=== PATIENT | female | born 2000 | race African-American/Black ===

== ENCOUNTER 2019-03-02 08:07 | Emergency (ER) | payer OTHER ==
[2019-03-02] MEDS ORDERED: NA CHLORIDE 0.9% 1,000 ML ONE (09:28)
[2019-03-02] MEDS ORDERED: ONDANSETRON 4 MG/2 ML VIAL ONE (09:29)
[2019-03-02] MEDS ORDERED: FAMOTIDINE 20 MG/2 ML VIAL IV ONE (09:29)
[2019-03-02 09:59] LABS: ALT/SGPT 18 U/L (12-78); AST/SGOT 18 U/L (15-37); Albumin 4.2 g/dL (3.4-5.0); Alkaline Phosphatase 54 U/L (45-117); BUN Blood Urea Nitrogen 11 mg/dL (7-18); Bicarbonate 25 mmol/L (21-32); Bilirubin Direct 0.2 mg/dL (0-0.2); Bilirubin Total 0.6 mg/dL (0.2-1.0); Glucose Level 88 mg/dL (74-106); Lipase 92 U/L (73-393); Potassium 4.2 mmol/L (3.5-5.1); Protein, Total 7.5 g/dL (6.4-8.2); Sodium Level 140 mmol/L (136-145)
[2019-03-02 10:17] LABS: Absolute Lymphocytes (CBC) 0.2 K/uL (0.7-4.9); Basophils % 0.2 % (0-1.3); Lymphocytes % 2.8 % (15.3-44.8); MPV 9.2 fL (7.6-11.3); RBC Red Blood Cell Count 4.71 M/uL (3.86-4.86)
--- NOTE | 2019-03-02 10:20 | RAD REPORT ---
EXAM DESCRIPTION: US - Abdomen Exam Limited - 03/02/2019 10:09 am CLINICAL HISTORY: Abd pain;Nausea / vomiting COMPARISON: No comparisons FINDINGS: The gallbladder demonstrates no gallstones. No pericholecystic fluid or gallbladder wall t hickening. The common bile duct is normal measuring 2 mm. The liver demonstrates no findings of intrahepatic biliary dilatation. IMPRESSION: Unremarkable examination.
[2019-03-02 11:03] LABS: Blood Morphology Comment NOT SEEN (NOT SEEN); Platelet Estimate ADEQ
[2019-03-02 11:19] LABS: Urine Blood NEGATIVE (NEG); Urine Glucose NEGATIVE (NEG); Urine Protein NEGATIVE (NEG); Urine pH 7.5 (5.0-7.0)
--- NOTE | 2019-03-02 11:32 | RAD REPORT ---
EXAM DESCRIPTION: CT - Abdomen Pelvis W Contrast - 03/02/2019 10:45 am CLINICAL HISTORY: Abdominal pain with vomiting and diarrhea COMPARISON: none. TECHNIQUE: Computed axial tomography of the abdomen pelvis was obtained. 100 cc Isovue-300 was admin istered intravenously. Oral contrast was not requested which limits evaluation of bowel. All CT scans are performed using dose optimization technique as appropriate and may include automated exposure control or mA/KV adjustment according to patient size. FINDINGS: The liver, spleen, pancreas, adrenal and kidneys appear unremarkable. There is no evidence of diverticulitis. 4.5 centimeter fluid collection is present within the posterior right pelvis. Small amount of free fl uid is present. A 2 centimeter regularly shaped fluid filled structure right adnexal Fluid is present within nondilated bowel. Scoliosis is present IMPRESSION: 2 centimeter irregularly-shaped fluid filled structure right adnexa may represent a rece ntly ruptured ovarian cyst A 4.5 centimeter fluid collection within the posterior right pelvis may r epresent an additional cyst or fluid within small bowel. . Pelvic ultrasound recommended Fluid within nondilated small bowel may indicate an enteritis. The appendix is not clearly seen. If the patient has clinical symptoms to suggest appendicitis then a CT scan with oral contrast and opacification of the terminal ileum/cecum would be recommended
--- NOTE | 2019-03-02 12:24 | ER ---
Nurse's Notes [facility] Name: Judy Hammond Age: 18 yrs Sex: Female : 2000 Arrival Date: 03/02/2019 Time: 08:09 Bed 14 Private MD: Diagnosis: Nausea and vomiting Presentation: 03/02 08:29 Presenting complaint: N/V/D, upper abdominal pain, and body aches since 0100 today. Not hb tolerating fluids. Mother reports frequent N/V x 2 months. Transition of care: patient was not received from another setting of care. Onset of symptoms was March 02, 2019. Risk Assessment: Do you want to hurt yourself or someone else? Patient reports no desire to harm self or others. Initial Sepsis Screen: Does the patient meet any 2 criteria? No. Patient's initial sepsis screen is negative. Does the patient have a suspected source of infection? No. Patient's initial sepsis screen is negative. Care prior to arrival: None. 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 - Social history:: Smoking status: Patient/guardian denies using tobacco. - Ebola Screening: : No symptoms or risks identified at this time. Screenin:25 Abuse screen: Denies threats or abuse. Nutritional screening: No deficits noted. aa5 Tuberculosis screening: No symptoms or risk factors identified. Fall Risk None identified. Assessment: 09:20 General: Appears uncomfortable, Behavior is calm, cooperative. Pain: Complains of pain aa5 in abdomen diffusely, legs, and salima hips Pain does not radiate. Pain currently is 7 out of 10 on a pain scale. Quality of pain is described as aching, Is intermittent. Neuro: Level of Consciousness is awake, alert, obeys commands, Oriented to person, place, time, situation. Cardiovascular: Heart tones S1 S2 present Rhythm is regular. Respiratory: Airway is patent Respiratory effort is even, unlabored, Respiratory pattern is regular, symmetrical, Breath sounds are clear bilaterally. GI: Abdomen is flat, non-distended, Bowel sounds present X 4 quads. Abd is soft and non tender X 4 quads. Reports diarrhea, nausea, vomiting, decreased appetite. : No signs and/or symptoms were reported regarding the genitourinary system. EENT: No signs and/or symptoms were reported regarding the EENT system. Derm: Skin is dry, Skin is normal, Skin temperature is warm. Musculoskeletal: Range of motion: intact in all extremities. 09:20 Reassessment: Pt's mother states "she's been having trouble keeping weight on and she aa5 has an appointment for a gallbladder ultrasound but not until March 22 because she's been having nausea and vomiting for a few months now and we are trying to find out if it's her gallbladder or maybe she is lactose intolerant" . 10:06 Reassessment: Pt back from US, pt ambulatory to restroom at this time, reports nausea aa5 has improved. . 10:23 Reassessment: Urine collected, pt back in bed. Pt states "I feel way better and I am aa5 even hungry now" . 10:23 Neuro: Level of Consciousness is awake, alert, obeys commands, Oriented to person, aa5 place, time, situation. Respiratory: Airway is patent Respiratory effort is even, unlabored, Respiratory pattern is regular, symmetrical. Derm: Skin is dry, Skin is normal, Skin temperature is warm. 10:23 General: Appears comfortable. aa5 10:34 Reassessment: Pt taken to CT via wheelchair . aa5 11:20 Reassessment: Pt sitting up in bed. Pt states feeling better, denies pain. Equal aa5 unlabored, respirations. Skin is normal/warm/dry, A\\T\\O x 4. . Vital Signs: 08:31 BP 112 / 73; Pulse 89; Resp 16; Temp 99(TE); Pulse Ox 100% on R/A; Weight 44.91 kg; hb Height 5 ft. 2 in. (157.48 cm); Pain 7/10; 09:38 BP 100 / 66; Pulse 91; Resp 16 S; Pulse Ox 100% on R/A; Pain 7/10; aa5 11:20 BP 115 / 74; Pulse 93; Resp 16 S; Pulse Ox 100% on R/A; Pain 0/10; aa5 12:00 BP 115 / 73; Pulse 103; Resp 18 S; Pulse Ox 99% on R/A; aa5 12:29 Weight 42.37 kg; mg2 13:11 BP 113 / 63; Pulse 98; Resp 17; Temp 98; Pulse Ox 100% on R/A; Pain 0/10; mg2 12:29 Body Mass Index 17.08 (42.37 kg, 157.48 cm) mg2 ED Course: 08:09 Patient arrived in ED. as 08:16 Mickey Fuentes MD is Attending Physician. kdr 08:30 Triage completed. hb 08:31 Arm band placed on right wrist. hb 09:03 Hai Sainz, MARIA GUADALUPE is Primary Nurse. bp 09:20 Patient has correct armband on for positive identification. Bed in low position. Call aa5 light in reach. Side rails up X2. Adult w/ patient. 09:25 Initial lab(s) drawn, by me, sent to lab. Inserted saline lock: 20 gauge in right aa5 antecubital area, using aseptic technique. Blood collected. 09:36 Radiology exam delayed due to lab results not completed at this time. (BUN/Creatinine) jg6 test not completed at this time. 10:09 US Abdomen Limited In Process Unspecified. EDMS 10:48 CT Abd/Pelvis - IV Contrast Only In Process Unspecified. EDMS 12:00 Report given to MARIA GUADALUPE Cruz. aa5 13:12 No provider procedures requiring assistance completed. IV discontinued, intact, mg2 bleeding controlled, No redness/swelling at site. Pressure dressing applied. Administered Medications: 09:32 Drug: Zofran 4 mg Route: IVP; Site: right antecubital; aa5 13:11 Follow up: Response: No adverse reaction; Marked relief of symptoms mg2 09:32 Drug: NS 0.9% 1000 ml Route: IV; Rate: 1 bolus; Site: right antecubital; aa5 13:10 Follow up: Response: No adverse reaction; IV Status: Completed infusion; IV Intake: mg2 1000ml 09:34 Drug: Pepcid 20 mg Route: IVP; Site: right antecubital; aa5 13:11 Follow up: Response: No adverse reaction; Marked relief of symptoms mg2 Intake: 13:10 IV: 1000ml; Total: 1000ml. mg2 Outcome: 12:23 Discharge ordered by . kdr 13:12 Discharged to home ambulatory, with family. mg2 13:12 Condition: stable 13:12 Discharge instructions given to patient, family, Instructed on discharge instructions, follow up and referral plans. medication usage, Demonstrated understanding of instructions, follow-up care, medications, Prescriptions given X 2. 13:12 Patient left the ED. mg2 Signatures: Dispatcher [employer] EDMS Mickey Fuentes MD MD [facility] Betsy Wall Audri, RN RN aa5 Melanie Sánchez RN RN Hai Sainz RN RN bp Gardose, Michele, RN RN mg2 Isabelle Lei6 Corrections: (The following items were deleted from the chart) 11:09 09:20 GI: Abdomen is flat, non-distended, Bowel sounds present X 4 quads. Abd is soft aa5 and non tender X 4 quads. Reports diarrhea, nausea, vomiting, aa5
--- NOTE | 2019-03-02 12:25 | EDPHYS ---
Physician Documentation [facility] Name: Judy Hammond Age: 18 yrs Sex: Female : 2000 Arrival Date: 03/02/2019 Time: 08:09 Bed 14 Private MD: ED Physician Mickey Fuentes HPI: 03/02 10:05 This 18 yrs old Black Female presents to ER via Ambulatory with complaints of Abdominal kdr Pain. 10:05 The patient presents with abdominal pain in the upper abdomen. Onset: The kdr symptoms/episode began/occurred last night, That patient has been having intermittent n/v for two months and has not been evaluated. She is normally petite for her age and since last night has been n/v and unable to keep anything down. She c/o pain to her upper abdomen and generalized aches and pains.. The symptoms do not radiate. Associated signs and symptoms: Pertinent positives: nausea and vomiting, Pertinent negatives: chest pain, constipation, diarrhea, headache, hematuria, palpitations, shortness of breath, vaginal discharge, vomiting, vomiting blood. The symptoms are described as achy, crampy, intermittent, vague, waxing/waning. Modifying factors: The symptoms are alleviated by nothing, the symptoms are aggravated by food, vomiting. Severity of pain: At its worst the pain was moderate in the emergency department the pain is unchanged. The patient has experienced similar episodes in the past, a few times. The patient has not recently seen a physician. 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 - Social history:: Smoking status: Patient/guardian denies using tobacco. - Ebola Screening: : No symptoms or risks identified at this time. ROS: 10:20 Constitutional: Negative for fever, chills, and weight loss, Eyes: Negative for injury, kdr pain, redness, and discharge, ENT: Negative for injury, pain, and discharge, Neck: Negative for injury, pain, and swelling, Cardiovascular: Negative for chest pain, palpitations, and edema, Respiratory: Negative for shortness of breath, cough, wheezing, and pleuritic chest pain, Back: Negative for injury and pain, : Negative for injury, bleeding, discharge, and swelling, MS/Extremity: Negative for injury and deformity, Skin: Negative for injury, rash, and discoloration, Neuro: Negative for headache, weakness, numbness, tingling, and seizure activity. Psych: Negative for depression, anxiety, suicide ideation, homicidal ideation, and hallucinations, Allergy/Immunology: Negative for hives, rash, and allergies, Endocrine: Negative for neck swelling, polydipsia, polyuria, polyphagia, and marked weight changes, Hematologic/Lymphatic: Negative for swollen nodes, abnormal bleeding, and unusual bruising. 10:20 Abdomen/GI: Positive for abdominal pain, nausea and vomiting, Negative for abdominal cramps, abdominal distension, anorexia, dysphagia, hematemesis, black/tarry stool, rectal pain. Exam: 10:20 Constitutional: This is a well developed, well nourished patient who is awake, alert, kdr and in mild distress. Head/Face: Normocephalic, atraumatic. Eyes: Pupils equal round and reactive to light, extra-ocular motions intact. Lids and lashes normal. Conjunctiva and sclera are non-icteric and not injected. Cornea within normal limits. Periorbital areas with no swelling, redness, or edema. Neck: Trachea midline, no thyromegaly or masses palpated, and no cervical lymphadenopathy. Supple, full range of motion without nuchal rigidity, or vertebral point tenderness. No Meningismus. Chest/axilla: Normal chest wall appearance and motion. Nontender with no deformity. No lesions are appreciated. Cardiovascular: Regular rate and rhythm with a normal S1 and S2. No gallops, murmurs, or rubs. Normal PMI, no JVD. No pulse deficits. Respiratory: Lungs have equal breath sounds bilaterally, clear to auscultation and percussion. No rales, rhonchi or wheezes noted. No increased work of breathing, no retractions or nasal flaring. Back: No spinal tenderness. No costovertebral tenderness. Full range of motion. Skin: Warm, dry with normal turgor. Normal color with no rashes, no lesions, and no evidence of cellulitis. MS/ Extremity: Pulses equal, no cyanosis. Neurovascular intact. Full, normal range of motion. Neuro: Awake and alert, GCS 15, oriented to person, place, time, and situation. Cranial nerves II-XII grossly intact. Motor strength 5/5 in all extremities. Sensory grossly intact. Cerebellar exam normal. Normal gait. Psych: Awake, alert, with orientation to person, place and time. Behavior, mood, and affect are within normal limits. 10:20 Abdomen/GI: Inspection: abdomen appears normal, Bowel sounds: active, diminished, in all quadrants, Palpation: soft, mild abdominal tenderness, in the abdomen diffusely. Vital Signs: 08:31 BP 112 / 73; Pulse 89; Resp 16; Temp 99(TE); Pulse Ox 100% on R/A; Weight 44.91 kg; hb Height 5 ft. 2 in. (157.48 cm); Pain 7/10; 09:38 BP 100 / 66; Pulse 91; Resp 16 S; Pulse Ox 100% on R/A; Pain 7/10; aa5 11:20 BP 115 / 74; Pulse 93; Resp 16 S; Pulse Ox 100% on R/A; Pain 0/10; aa5 12:00 BP 115 / 73; Pulse 103; Resp 18 S; Pulse Ox 99% on R/A; aa5 12:29 Weight 42.37 kg; mg2 13:11 BP 113 / 63; Pulse 98; Resp 17; Temp 98; Pulse Ox 100% on R/A; Pain 0/10; mg2 12:29 Body Mass Index 17.08 (42.37 kg, 157.48 cm) mg2 MDM: 10:20 Data reviewed: vital signs, nurses notes, lab test result(s), radiologic studies. kdr Counseling: I had a detailed discussion with the patient and/or guardian regarding: the historical points, exam findings, and any diagnostic results supporting the discharge/admit diagnosis, lab results, radiology results. 12:23 Patient medically screened. kdr 03/02 09:19 Order name: Basic Metabolic Panel; Complete Time: 10:19 kdr 03/02 09:19 Order name: CBC with Diff; Complete Time: 11:47 kdr 03/02 09:19 Order name: Hepatic Function; Complete Time: 10:19 kdr 03/02 09:19 Order name: Lipase; Complete Time: 10:19 kdr 03/02 10:31 Order name: Urine Dipstick--Ancillary (enter results) bd 03/02 09:19 Order name: IV Saline Lock; Complete Time: 09:38 kdr 03/02 09:32 Order name: CT Abd/Pelvis - IV Contrast Only; Complete Time: 11:47 kdr 03/02 09:32 Order name: US Abdomen Limited; Complete Time: 10:44 kdr 03/02 10:31 Order name: Urine --Ancillary (enter results); Complete Time: 11:47 bd 03/02 11:03 Order name: Manual Differential; Complete Time: 11:47 EDMS 03/02 09:19 Order name: Labs collected and sent; Complete Time: 09:38 kdr 03/02 10:19 Order name: Urine Dipstick-Ancillary (obtain specimen); Complete Time: 10:30 kdr 03/02 10:19 Order name: Urine Test (obtain specimen); Complete Time: 10:30 kdr Administered Medications: 09:32 Drug: Zofran 4 mg Route: IVP; Site: right antecubital; aa5 13:11 Follow up: Response: No adverse reaction; Marked relief of symptoms mg2 09:32 Drug: NS 0.9% 1000 ml Route: IV; Rate: 1 bolus; Site: right antecubital; aa5 13:10 Follow up: Response: No adverse reaction; IV Status: Completed infusion; IV Intake: mg2 1000ml 09:34 Drug: Pepcid 20 mg Route: IVP; Site: right antecubital; aa5 13:11 Follow up: Response: No adverse reaction; Marked relief of symptoms mg2 Disposition: 03/02/19 12:23 Discharged to Home. Impression: Nausea and vomiting. - Condition is Stable. - Discharge Instructions: Nausea and Vomiting, Adult, [id number]. - Prescriptions for Zofran 4 mg Oral Tablet - take 1 tablet by ORAL route every 4-6 hours As needed; 12 tablet. Pepcid 20 mg Oral Tablet - take 1 tablet by ORAL route once daily; 20 tablet. - Medication Reconciliation Form, Thank You Letter form. - Follow up: Private Physician; When: 2 - 3 days; Reason: If symptoms return, Further diagnostic work-up, Recheck today's complaints, Continuance of care, Re-evaluation by your physician. - Problem is new. - Symptoms are resolved. Signatures: Dispatcher [employer] Mickey Valera MD MD kdr Kaya Renteria RN RN aa5 Melanie Sánchez, MARIA GUADALUPE RN Anthony Joel RN RN mg2 Corrections: (The following items were deleted from the chart) 11:34 09:20 Creatinine for Radiology+C.LAB.BRZ ordered. EDMS EDMS 13:12 12:23 03/02/2019 12:23 Discharged to Home. Impression: Nausea and vomiting. Condition mg2 is Stable. Forms are Medication Reconciliation Form, Thank You Letter, Antibiotic Education, Prescription Opioid Use. Follow up: Private Physician; When: 2 - 3 days; Reason: If symptoms return, Further diagnostic work-up, Recheck today's complaints, Continuance of care, Re-evaluation by your physician. Problem is new. Symptoms are resolved. kdr
== END 2019-03-02 13:12 | disposition home or self-care (01) ==
LOC: ER 08:07
DX: R11.2 Nausea with vomiting, unspecified (principal)
CPT/HCPCS: 85025; 80048; 36415; 81025; 80076; 81003; 83690; 74177; 76705; Q9967; J7030; J2405

== ENCOUNTER 2019-09-23 17:10 | Emergency (ER) | payer OTHER, SELFPAY ==
[2019-09-23] MEDS ORDERED: ACETAMINOPHEN 325 MG TABLET ONE (18:25)
--- NOTE | 2019-09-23 18:58 | EDPHYS ---
Physician Documentation [facility] Name: Judy Hammond Age: 19 yrs Sex: Female : 2000 Arrival Date: 09/23/2019 Time: 17:16 Bed 23 Private MD: ED Physician Nikko Soria HPI: 09/22 18:10 This 19 yrs old Black Female presents to ER via Ambulatory with complaints of Fever, la1 Nausea. 18:10 The patient reports fever, that was measured at 101.3 degrees Fahrenheit. Onset: The la1 symptoms/episode began/occurred today. Modifying factors: The patient has had contact with sick. Associated signs and symptoms: Pertinent positives: abdominal pain. Severity of symptoms: At their worst the symptoms were moderate. The patient has not experienced similar symptoms in the past. 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 - Social history:: Smoking status: Patient denies any tobacco usage or history of. ROS: 18:11 Constitutional: Negative for fever, chills, and weight loss, Eyes: Negative for injury, la1 pain, redness, and discharge, ENT: Negative for injury, pain, and discharge, Neck: Negative for injury, pain, and swelling, Cardiovascular: Negative for chest pain, palpitations, and edema, Respiratory: Negative for shortness of breath, cough, wheezing, and pleuritic chest pain. 18:11 Constitutional: + fever Back: Negative for injury and pain, : Negative for injury, bleeding, discharge, and swelling, MS/Extremity: Negative for injury and deformity, Skin: Negative for injury, rash, and discoloration. 18:11 Abdomen/GI: Positive for vomiting. Exam: 18:12 Constitutional: This is a well developed, well nourished patient who is awake, alert, la1 and in no acute distress. Head/Face: Normocephalic, atraumatic. Eyes: Pupils equal round and reactive to light, extra-ocular motions intact. Lids and lashes normal. Conjunctiva and sclera are non-icteric and not injected. Cornea within normal limits. Periorbital areas with no swelling, redness, or edema. ENT: Nares patent. No nasal discharge, no septal abnormalities noted. Tympanic membranes are normal and external auditory canals are clear. Oropharynx with no redness, swelling, or masses, exudates, or evidence of obstruction, uvula midline. Mucous membranes moist. Neck: Trachea midline, Chest/axilla: Normal chest wall appearance and motion. Nontender with no deformity. No lesions are appreciated. Cardiovascular: Regular rate and rhythm with a normal S1 and S2. Respiratory: Lungs have equal breath sounds bilaterally, clear to auscultation Abdomen/GI: Soft, non-tender, with normal bowel sounds. No distension or tympany. No guarding or rebound. No evidence of tenderness throughout. Skin: Warm, dry with normal turgor. Normal color with no rashes, no lesions, and no evidence of cellulitis. MS/ Extremity: Pulses equal, no cyanosis. Neurovascular intact. Full, normal range of motion. Vital Signs: 17:40 BP 107 / 70; Pulse 112; Resp 20 S; Temp 101.3(O); Pulse Ox 100% on R/A; Weight 44 kg iw (R); Height 5 ft. 2 in. (157.48 cm) (R); 18:33 BP 106 / 63; Pulse 109; Resp 17; Temp 101.6; Pulse Ox 100% on R/A; mh5 17:40 Body Mass Index 17.74 (44.00 kg, 157.48 cm) iw MDM: 17:48 Patient medically screened. la1 18:56 Data reviewed: vital signs, nurses notes, lab test result(s), and as a result, I will la1 discharge patient. Data interpreted: Pulse oximetry: on room air is 100 %. Interpretation: normal. Counseling: I had a detailed discussion with the patient and/or guardian regarding: the historical points, exam findings, and any diagnostic results supporting the discharge/admit diagnosis, lab results, the need for outpatient follow up, a family practitioner. Special discussion: Based on the history and exam findings, there is no indication for further emergent testing or inpatient evaluation. I discussed with the patient/guardian the need to see the primary care provider for further evaluation of the symptoms. 09/22 18:02 Order name: Flu la1 09/22 18:52 Order name: Influenza Screen (A EDMS Administered Medications: 18:20 Drug: Tylenol 650 mg Route: PO; ls4 Disposition: 09/23/19 18:57 Discharged to Home. Impression: Fever, unspecified, Nausea and vomiting. - Condition is Stable. - Discharge Instructions: Fever, Adult, Nausea and Vomiting, Adult. - Prescriptions for Zofran 4 mg Oral Tablet - take 1 tablet by ORAL route every 12 hours As needed; 20 tablet. - Medication Reconciliation Form, Thank You Letter form. - Follow up: Private Physician; When: 2 - 3 days; Reason: Recheck today's complaints, Re-evaluation by your physician. - Problem is new. - Symptoms have improved. Addendum: 09/26/2019 07:20 Co-signature as Attending Physician, Nikko Soria MD I agree with the assessment and c perez plan of care. Signatures: Dispatcher [employer] [facility] Nikko Soria MD MD cha Williams, Irene, RN RN iw Lino Ann, DAHLIA-C DOCUMENT PHOTOGRAPHER-[facility]1 Anais Wall 5 Fátima Calvillo RN RN ls4 Corrections: (The following items were deleted from the chart) 09/22 19:12 18:57 09/23/2019 18:57 Discharged to Home. Impression: Fever, unspecified; Nausea and mh5 vomiting. Condition is Stable. Forms are Medication Reconciliation Form, Thank You Letter, Antibiotic Education, Prescription Opioid Use. Follow up: Private Physician; When: 2 - 3 days; Reason: Recheck today's complaints, Re-evaluation by your physician. Problem is new. Symptoms have improved. la1
--- NOTE | 2019-09-23 18:58 | ER ---
Nurse's Notes [facility] Name: Judy Hammond Age: 19 yrs Sex: Female : 2000 Arrival Date: 09/23/2019 Time: 17:16 Bed 23 Private MD: Diagnosis: Fever, unspecified;Nausea and vomiting Presentation: 09/22 17:40 Chief complaint: Patient states: fever and nausea that began 1 day ago. Pt states "I iw had congestion last week but not anymore". Coronavirus screen: The patient has NOT traveled to a country currently being monitored by the [facility] within the last 14 days. Ebola Screen: Patient negative for fever greater than or equal to 101.5 degrees Fahrenheit, and additional compatible Ebola Virus Disease symptoms. Initial Sepsis Screen: Does the patient meet any 2 criteria? Temp <36.0*C (96.8*F)) or > 38.3*C (100.9*F). HR > 90 bpm. Does the patient have a suspected source of infection? No. Patient's initial sepsis screen is negative. Risk Assessment: Do you want to hurt yourself or someone else? Patient reports no desire to harm self or others. 17:40 Method Of Arrival: Ambulatory iw 17:40 Acuity: ZOË 4 iw Triage Assessment: 18:00 General: Appears in no apparent distress. ill, Behavior is calm, cooperative, vc appropriate for age. Pain: Denies pain. Respiratory: Airway is patent Respiratory effort is even, unlabored, Respiratory pattern is regular, symmetrical, Breath sounds are clear bilaterally. 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 - Social history:: Smoking status: Patient denies any tobacco usage or history of. Screenin:00 Abuse screen: Denies threats or abuse. Nutritional screening: No deficits noted. vc Tuberculosis screening: No symptoms or risk factors identified. Fall Risk None identified. Assessment: 18:00 Cardiovascular: Capillary refill < 3 seconds Patient's skin is warm and dry. vc Respiratory: Airway is patent Respiratory effort is even, unlabored, Respiratory pattern is regular, symmetrical. 18:00 General: Appears in no apparent distress. uncomfortable, Behavior is calm, cooperative, vc appropriate for age. Pain: Denies pain. Neuro: Level of Consciousness is awake, alert, obeys commands, Oriented to person, place, time, situation, Appropriate for age. Respiratory: Airway is patent Respiratory effort is even, unlabored, Respiratory pattern is regular, symmetrical. Respiratory: Breath sounds are clear. GI: Reports nausea. : No signs and/or symptoms were reported regarding the genitourinary system. EENT: No signs and/or symptoms were reported regarding the EENT system. Derm: Skin temperature is hot. Musculoskeletal: Circulation, motion, and sensation intact. Range of motion: intact in all extremities. Vital Signs: 17:40 BP 107 / 70; Pulse 112; Resp 20 S; Temp 101.3(O); Pulse Ox 100% on R/A; Weight 44 kg iw (R); Height 5 ft. 2 in. (157.48 cm) (R); 18:33 BP 106 / 63; Pulse 109; Resp 17; Temp 101.6; Pulse Ox 100% on R/A; mh5 17:40 Body Mass Index 17.74 (44.00 kg, 157.48 cm) iw ED Course: 17:16 Patient arrived in ED. fj1 17:40 Arm band placed on. iw 17:41 Triage completed. iw 17:44 Lino Ann FNP-C is [facility]. la1 17:44 Nikko Soria MD is Attending Physician. la1 18:19 Pili Stewart, RN is Primary Nurse. vc 18:34 Patient has correct armband on for positive identification. Bed in low position. Call mh5 light in reach. Side rails up X 1. Adult w/ patient. Pulse ox on. NIBP on. 19:10 No provider procedures requiring assistance completed. Patient did not have IV access vc during this emergency room visit. Administered Medications: 18:20 Drug: Tylenol 650 mg Route: PO; ls4 Outcome: 18:57 Discharge ordered by . la1 19:10 Discharged to home ambulatory, with family. vc 19:10 Condition: good 19:10 Discharge instructions given to patient, family, Instructed on discharge instructions, follow up and referral plans. medication usage, Demonstrated understanding of instructions, follow-up care, medications, Prescriptions given X 1. 19:12 Patient left the ED. 5 Signatures: Sofi Hammond RN RN iw Lino Ann, LEMON GROWER-C LEMON GROWER-Cla1 Anais Wall 5 Fátima Calvillo RN RN ls4 Pili Stewart RN RN Flako Nolen fj1 Corrections: (The following items were deleted from the chart) 21:50 21:47 General: Appears in no apparent distress. uncomfortable, Behavior is calm, vc cooperative, appropriate for age, vc :50 21:47 Pain: Denies pain. vc vc :50 21:47 Neuro: Level of Consciousness is awake, alert, obeys commands, Oriented to vc person, place, time, situation, Appropriate for age vc :50 21:47 Respiratory: Airway is patent Respiratory effort is even, unlabored, Respiratory vc pattern is regular, symmetrical, vc :50 21:47 GI: Reports nausea, vc vc : 21:47 : No signs and/or symptoms were reported regarding the genitourinary system. vc vc :50 21:47 EENT: No signs and/or symptoms were reported regarding the EENT system. vc vc : 21:47 Derm: Skin temperature is hot vc vc :50 21:47 Musculoskeletal: Circulation, motion, and sensation intact. Range of motion: vc intact in all extremities, vc :50 21:47 Respiratory: Breath sounds are clear vc vc
[2019-09-23 20:01] VITALS: O2SAT 100
[2019-09-23 20:03] VITALS: BP 106/63; TEMP 101.6
== END 2019-09-23 19:12 | disposition home or self-care (01) ==
LOC: ER 17:10
DX: R11.2 Nausea with vomiting, unspecified (principal)
CPT/HCPCS: 87804; 99283